=== PATIENT | male | born 1990 | race Caucasian/White ===

== ENCOUNTER 2017-09-14 08:27 | Emergency (ER) | payer OTHER ==
[2017-09-14 08:36] VITALS: BMI 20.5
[2017-09-14 08:38] VITALS: BP 142/84; PULSE 76; RESP 20; TEMP 98; O2SAT 99
[2017-09-14] MEDS ORDERED: Carbamide Peroxide OTIC SOLUTION AS STA (09:01)
[2017-09-14] MEDS ORDERED: Hydrogen Peroxide 237 ML SOL TP STA (09:03)
--- NOTE | 2017-09-14 09:06 | ED PDOC ---
HPI: General Adult Time Seen by Provider: 09/14/17 08:44 Chief Complaint (Nursing): ENT Problem Chief Complaint (Provider): Ear pain History Per: Patient History/Exam Limitations: no limitations Onset/Duration Of Symptoms: Days (1 week) Current Symptoms Are (Timing): Still Present Additional Complaint(s): Pt. with left ear pain for 1 week. No dyspnea, cough, congestion, weakness, throat pain. No fever. No injury to ear. No abd pain. Past Medical History Reviewed: Nursing Documentation, Vital Signs Vital Signs: Last Vital Signs Temp 98 F 09/14/17 08:37 Pulse 76 09/14/17 08:37 Resp 20 09/14/17 08:37 BP 142/84 09/14/17 08:37 Pulse Ox 99 09/14/17 09:10 - Medical History PMH: No Chronic Diseases Denies: Chronic Kidney Disease - Surgical History Surgical History: No Surg Hx - Family History Family History: States: Unknown Family Hx - Immunization History Hx Tetanus Toxoid Vaccination: No - Home Medications Home Medications: Ambulatory Orders Medication Instructions Recorded Amoxicillin/Clavulanate Pota 1 tab PO BID #20 tab 06/02/15 [Augmentin 875 mg-125 mg] Bacitracin Ointment [Bacitracin] 30 gm TOP BID #1 tube 06/02/15 traMADol [Ultram] 50 mg PO Q6H PRN #15 tab 06/02/15 Albuterol HFA [Ventolin HFA 90 2 puff IH [id number] PRN #0 puff 11/17/15 mcg/actuation (8 g)] Azithromycin [Zithromax] 1 tab PO DAILY #6 tablet 11/17/15 Promethazine DM [Phenergan DM 5 ml PO BID #100 ml 11/17/15 Syrup] - Allergies Allergies/Adverse Reactions: Allergies Allergy/AdvReac Type Severity Reaction Status Date / Time No Known Allergies Allergy Verified 06/02/15 19:21 Review of Systems Constitutional: Negative for: Fever, Weakness ENT: Positive for: Ear Pain. Negative for: Ear Discharge, Nose Pain, Nose Congestion, Throat Pain Respiratory: Negative for: Cough, Shortness of Breath Gastrointestinal: Negative for: Nausea, Vomiting, Abdominal Pain Musculoskeletal: Negative for: Neck Pain Neurological: Negative for: Weakness Physical Exam - Reviewed Nursing Documentation Reviewed: Yes Vital Signs Reviewed: Yes - Physical Exam Appears: Positive for: Non-toxic, No Acute Distress Head Exam: Positive for: ATRAUMATIC, NORMAL INSPECTION, NORMOCEPHALIC Skin: Positive for: Normal Color, Warm, DRY Eye Exam: Positive for: EOMI, Normal appearance, PERRL ENT: Positive for: TM Is/Are (L ear with wax; clear TM seen; no erythema) Neck: Positive for: Normal, Painless ROM Cardiovascular/Chest: Positive for: Regular Rate, Rhythm Respiratory: Positive for: CNT, Normal Breath Sounds Neurologic/Psych: Positive for: Alert, Oriented - ECG O2 Sat by Pulse Oximetry: 99 Pulse Ox Interpretation: Normal - Progress ED Course And Treament: 945: Stable. AAOx3. Feels much better. Fu with pcp. Disposition - Clinical Impression Clinical Impression: Cerumen impaction - Patient ED Disposition Is Patient to be Admitted: No Counseled Patient/Family Regarding: Diagnosis, Need For Followup - Disposition Referrals: [facility] [Outside] - 09/15/17 Mikie Henson MD [Staff Provider] - 09/15/17 Disposition: Routine/Home Disposition Time: 09:46 Condition: STABLE Additional Instructions: Return if not better in 3 days. Instructions: Cerumen Impaction (ED) Print Language: [place]
[2017-09-14] MEDS ORDERED: Hydrogen Peroxide 3% Soln (480ml) TP ONE (09:07)
== END 2017-09-14 10:10 | disposition home or self-care (01) ==
LOC: H.ER 08:27
DX: H61.20 Impacted cerumen, unspecified ear (principal)